=== PATIENT | female | born 1980 | race Caucasian/White ===

== ENCOUNTER 2018-08-26 08:09 | Outpatient (CLI) | payer OTHER | END 2018-08-26 08:14 | disposition home or self-care (01) | LOC: SONOGRAMA 08:09 | DX: E04.2 Nontoxic multinodular goiter (principal) ==

== ENCOUNTER 2018-12-01 08:15 | Inpatient (IN) | payer OTHER ==
[~2018-12-01] VITALS: Ht 175.3 cm; Wt 64.0 kg
[2018-12-01] MEDS ORDERED: SYNTH PO (10:10)
[2018-12-04] MEDS ORDERED: SYNTHROID88 MCG (16:05)
[2018-12-04] MEDS ORDERED: CLONAZEPAM0.5 MG (16:06)
[2018-12-04] MEDS ORDERED: BUPROPION HCL100 M1 (16:06)
[2018-12-04] MEDS ORDERED: SYNTHROID75 MCG PO (16:06)
[2018-12-05] MEDS ORDERED: Tylenol #3 PO (09:27)
[2018-12-05] MEDS ORDERED: NAPR500T14 PO (09:27)
== END 2018-12-05 12:29 | disposition home or self-care (01) | DRG 743 ==
LOC: O/R 08:15 → NICU 12-04 08:15 → SURG 12-04 08:15 → O/R 12-04 12:00 → SURG 12-04 17:30 → OB/GYN 12-04 18:20
PROVIDERS: ADMIT Obstetrics & Gynecology
PROC: 0UQF7ZZ Repair Cul-de-sac, Via Natural or Artificial Opening (ICD-10-PCS; 2018-12-04)
PROC: 0USG7ZZ Reposition Vagina, Via Natural or Artificial Opening (ICD-10-PCS; 2018-12-04)
PROC: 0TJB8ZZ Inspection of Bladder, Via Natural or Artificial Opening Endoscopic (ICD-10-PCS; 2018-12-04)
PROC: 0UT97ZZ Resection of Uterus, Via Natural or Artificial Opening (ICD-10-PCS; principal; 2018-12-04 17:30)
DX: D25.1 Intramural leiomyoma of uterus (principal); D25.2 Subserosal leiomyoma of uterus; N72 Inflammatory disease of cervix uteri; N81.11 Cystocele, midline; N81.5 Vaginal enterocele

== ENCOUNTER 2021-02-06 10:00 | Outpatient (CLI) | payer OTHER ==
[~2021-02-06 10:00] MED LIST: BUPROPION HCL100 M1; CLONAZEPAM0.5 MG; NAPR500T14 PO; SYNTH PO; SYNTHROID75 MCG PO; SYNTHROID88 MCG; Tylenol #3 PO
== END 2021-02-06 11:19 | disposition home or self-care (01) ==
LOC: SONOGRAMA 10:00
PROVIDERS: ATTEND Pathology Anatomic Pathology & Clinical Pathology
DX: E04.2 Nontoxic multinodular goiter (principal)